=== PATIENT | female | born 1975 | race Caucasian/White ===

== ENCOUNTER 2022-04-19 21:28 | Emergency (ER) | payer OTHER ==
[~2022-04-19] VITALS: Ht 177.8 cm; Wt 156.5 kg
[2022-04-19 21:34] VITALS: BP 136/67
--- NOTE | 2022-04-19 22:37 | NUR ---
PATIENT LEFT WITHOUT BEING SEEN BY DR. García. NO FURTHER CARE PROVIDED FOR PATIENT.
== END 2022-04-19 22:37 | disposition left against medical advice (07) ==
LOC: MED 21:28
DX: T63.301A Toxic effect of unspecified spider venom, accidental (unintentional), initial encounter (principal); R06.89 Other abnormalities of breathing; R42 Dizziness and giddiness; Z53.21 Procedure and treatment not carried out due to patient leaving prior to being seen by health care provider; Y92.89 Other specified places as the place of occurrence of the external cause

== ENCOUNTER 2022-07-01 23:30 | Emergency (ER) | payer OTHER ==
[~2022-07-01] VITALS: Ht 180.3 cm; Wt 136.1 kg
[2022-07-01 23:35] VITALS: BP 134/57
--- NOTE | 2022-07-01 23:35 | NUR ---
to bed ambulatory
--- NOTE | 2022-07-01 23:55 | NUR ---
PT IN GOWN ON BEDSIDE SYSTEM ARCHITECT. 20G IV CATH PLACED IN R AC. LABS OBTAINED. HOB ELEVATED
--- NOTE | 2022-07-02 00:09 | NUR ---
DR LAWRENCE AT BEDSIDE
[2022-07-02] MEDS ORDERED: FUROSEMIDE 40 MG/4 ML VIAL IVP ONE (00:25)
[2022-07-02 00:41] LABS: HEMATOCRIT 32.8 % (36-48); RED BLOOD CELL COUNT(AUTO) 4.68 MIL/uL (4.20-5.40)
--- NOTE | 2022-07-02 00:50 | NUR ---
Pt medicated via IVP as ordered; tolerated well.
[2022-07-02 01:05] LABS: ANION GAP 10.3 (8-16); CARBON DIOXIDE 28.3 mmol/L (21-32); CREATININE 0.8 mg/dL (0.6-1.3); POTASSIUM 3.6 mmol/L (3.5-5.1); TOTAL BILIRUBIN 0.2 mg/dL (0.0-1.0)
[2022-07-02 01:17] LABS: BASOPHILS % (AUTO) 0.4 % (0.0-2.0); EOSINOPHILS # (AUTO) 0.3 K/uL (0-0.4); EOSINOPHILS % (AUTO) 2.6 % (0.0-4.0); HEMOGLOBIN 10.1 g/dL (12.0-16.0); LYMPHOCYTES # (AUTO) 2.1 K/uL (2.5-16.5); LYMPHOCYTES % (AUTO) 19.9 % (20.5-51.1); MEAN CORPUSCULAR HEMOGLOBIN 22 pg (27-31); MEAN CORPUSCULAR HGB CONC 31 g/dL (33-37); MEAN CORPUSCULAR VOLUME 70.1 fL (80-94); MONOCYTES # (AUTO) 0.6 K/uL (0.8-1.0); MONOCYTES % (AUTO) 5.9 % (1.7-9.3); NEUTROPHILS # (AUTO) 7.4 K/uL (1.8-7.7); NEUTROPHILS % (AUTO) 71.2 % (42.2-75.2); PLATELET COUNT (AUTO) 385 K/uL (140-450); WHITE BLOOD COUNT (AUTO) 10.4 K/uL (4.8-10.8)
[2022-07-02 02:35] LABS: APPEARANCE,URINE CLEAR (CLEAR); BILIRUBIN,URINE NEGATIVE (NEGATIVE); BLOOD, URINE NEGATIVE (NEGATIVE); COLOR,URINE YELLOW (YELLOW); LEUKOCYTE ESTERASE ,URINE TRACE (NEGATIVE); NITRITE, URINE NEGATIVE (NEGATIVE); PH,URINE 5.5 (5.0-9.0); UGLUCOSE NEGATIVE (NEGATIVE)
[2022-07-02 02:56] LABS: BARBITURATE, URINE NEGATIVE ng/ml (NEG <=200); BENZODIAZEPINE, URINE NEGATIVE ng/mL (NEG <=200); CANNABINOID, URINE NEGATIVE ng/mL (NEG <=50); COCAINE, URINE NEGATIVE ng/mL (NEG <=300); OPIATE, URINE NEGATIVE ng/mL (NEG <=2000); PHENCYCLIDINE SCREEN,URINE NEGATIVE ng/mL (NEG <=25)
[2022-07-02] MEDS ORDERED: NITR100C7 PO (03:26)
[2022-07-02] MEDS ORDERED: FURO-570 PO (03:26)
[2022-07-02 03:48] VITALS: BP 122/65
--- NOTE | 2022-07-02 03:48 | NUR ---
Patient discharged with v/s stable. Written and verbal after care instructions given and explained. Patient verbalized understanding. Ambulatory with steady gait. All questions addressed prior to discharge. Advised to follow up with PMD.
== END 2022-07-02 03:48 | disposition home or self-care (01) ==
LOC: MED 23:30
DX: R06.02 Shortness of breath (principal); N39.0 Urinary tract infection, site not specified; R07.9 Chest pain, unspecified; I50.9 Heart failure, unspecified; Z90.49 Acquired absence of other specified parts of digestive tract; Z98.890 Other specified postprocedural states; Z79.899 Other long term (current) drug therapy; Z79.2 Long term (current) use of antibiotics; Z88.1 Allergy status to other antibiotic agents
CPT/HCPCS: 36415; 71045; 80053; 80305; 81003; 83690; 83880; 84484; 85025; 93005; 96374; 99285; J1940; Q0092